=== PATIENT | female | born 1965 | race Caucasian/White ===

== ENCOUNTER 2017-01-18 10:27 | Day surgery (SDC) | payer OTHER, BC ==
[~2017-01-18] VITALS: Ht 167.6 cm; Wt 71.7 kg
--- NOTE | ~2017-01-18 | OP ---
Record Of Operation [facility] [address] [id number] NAME: HARLEY MOSQUEDA : 63 STATUS : REG [facility]#: [id number] AGE: 51 ADM/REG DATE : 01/18/17 MR#: [id number] REPORT SERV DATE: 01/18/17 DICTATED BY: BALAJI STEWART DATE: 01/18/17 REPORT STATUS : Draft TRANSCRIBED BY: MARIA C DATE: 01/18/17 DATE OF PROCEDURE: 01/18/2017 PREPROCEDURE DIAGNOSIS: Chronic anal fissure. POSTPROCEDURE DIAGNOSIS: Chronic anal fissure. PROCEDURE: Repeat Botox injection of the anal fissure. DESCRIPTION OF PROCEDURE: The patient was taken to the endoscopy suite and positioned in the left lateral decubitus position. Informed consent was obtained followed by IV sedation delivered by [employer]. Viscous lidocaine was applied to the area. Digital rectal exam was performed. Alcohol swab was used to clean the skin on the right side of the anus and then 50 units of Botox were injected in the intersphincteric groove in a fanning motion. This was repeated on the left side. The patient tolerated the procedure well. OCTAVIO/MARIA C Balaji Stewart M.D. / [id number] CC: Shiloh Melissa PAULA J.
[~2017-01-18 10:27] MED LIST: BUSPAR10 PO; GLUCPH PO; INVOKANA300 MG PO; PROTONIX PO; PROZ10 PO
== END 2017-01-18 23:59 | disposition home health service (06) ==
LOC: DMU 10:27 → EDSTATUS 11:30 → SDC 11:30 → DMU 23:59
PROVIDERS: Surgery
PROC: 3E023GC Introduction of Other Therapeutic Substance into Muscle, Percutaneous Approach (ICD-10-PCS; principal; 2017-01-18 11:30)
DX: K60.1 Chronic anal fissure (principal); K21.9 Gastro-esophageal reflux disease without esophagitis; E11.9 Type 2 diabetes mellitus without complications; F41.9 Anxiety disorder, unspecified; F32.9 Major depressive disorder, single episode, unspecified; Z88.5 Allergy status to narcotic agent; Z79.899 Other long term (current) drug therapy; Z90.710 Acquired absence of both cervix and uterus; Z90.49 Acquired absence of other specified parts of digestive tract; Z98.890 Other specified postprocedural states
CPT/HCPCS: 82962; A9270-GY; J0585